=== PATIENT | female | born 1950 | race Caucasian/White ===

== ENCOUNTER 2020-05-04 16:36 | Inpatient (IN) | payer MEDICARE, OTHER ==
--- NOTE | 2020-05-04 17:31 | ER Document Report ---
ED Extremity Problem, Lower - General Chief Complaint: Knee Injury Stated Complaint: FALL,LEFT KNEE PAIN Time Seen by Provider: 05/04/20 16:55 Mode of Arrival: Ambulatory Information source: Patient Notes: 69-year-old female presented to ED for complaint of left knee pain. She states she was walking on the sidewalk when she tripped on the sidewalk landing on her knee. She states she did not machine pecan picker her feet is when she tripped. Was brought to the emergency room by EMS she has having pain in the left knee. She is alert oriented respirations regular nonlabored speaking in full sentences. - HPI Patient complains to provider of: Injury, Pain Location: Knee Occurred: Just prior to arrival Where: Outdoors Onset/Duration: Sudden Quality of pain: Sharp, Throbbing Severity: Severe Pain Level: 5 Context: Fell, Other Recent injury: No - Tripped Associated symptoms: Unable to bear weight, Other - Vomited today Exacerbated by: Movement Relieved by: Ice - Related Data Allergies/Adverse Reactions: morphine Allergy (Verified 05/04/20 16:58) nitrofurantoin [From Macrodantin] Allergy (Verified 05/04/20 16:58) Past Medical History - General Information source: Patient - Social History Smoking Status: Never Smoker Frequency of alcohol use: Rare Drug Abuse: None Lives with: Family Family History: Reviewed & Not Pertinent Patient has suicidal ideation: No Patient has homicidal ideation: No - Past Medical History Cardiac Medical History: Reports: Hx Hypertension Pulmonary Medical History: Reports: None EENT Medical History: Reports: None Neurological Medical History: Reports: None Endocrine Medical History: Reports: None, Hx Diabetes Mellitus Type 2 Renal/ Medical History: Reports: None Malignancy Medical History: Reports: None GI Medical History: Reports: Hx Gastroesophageal Reflux Disease, Hx Hiatal Hernia, Hx Ulcerative Colitis - In remission, Hx Colonoscopy, Hx Endoscopy Musculoskeletal Medical History: Reports Hx Musculoskeletal Deformity, Reports Hx Musculoskeletal Trauma Skin Medical History: Reports None Psychiatric Medical History: Reports: None Traumatic Medical History: Reports: Hx Fractures - Ankle Infectious Medical History: Reports: None Past Surgical History: Reports: Hx Cholecystectomy, Hx Oral Surgery - Multiple dental surgeries, Hx Orthopedic Surgery - Left ankle bilateral hip replacement Review of Systems - Review of Systems Constitutional: No symptoms reported EENT: No symptoms reported Cardiovascular: No symptoms reported Respiratory: No symptoms reported Gastrointestinal: No symptoms reported Genitourinary: No symptoms reported Female Genitourinary: No symptoms reported Musculoskeletal: Joint pain - Left knee pain and deformity, Joint swelling Skin: No symptoms reported Hematologic/Lymphatic: No symptoms reported Neurological/Psychological: No symptoms reported -: Yes All other systems reviewed and negative Physical Exam - Vital signs Vitals: Temp Pulse Resp BP Pulse Ox 98.5 F 70 18 125/63 97 05/04/20 16:57 05/04/20 16:57 05/04/20 16:57 05/04/20 16:57 05/04/20 16:57 Interpretation: Normal - General General appearance: Appears well, Alert - HEENT Head: Normocephalic, Atraumatic Eyes: Normal Pupils: PERRL - Respiratory Respiratory status: No respiratory distress Chest status: Nontender Breath sounds: Normal Chest palpation: Normal - Cardiovascular Rhythm: Regular Heart sounds: Normal auscultation Murmur: No - Abdominal Inspection: Normal Distension: No distension Bowel sounds: Normal Tenderness: Nontender Organomegaly: No organomegaly - Back Back: Normal, Nontender - Extremities General upper extremity: Normal inspection, Nontender, Normal color, Normal ROM, Normal temperature General lower extremity: Normal color, Normal temperature. No: Yuval's sign Knee: Tender, Deformity, Pain with ROM, Patellar tendon intact, Tender joint line, Unable to bear weight - Neurological Neuro grossly intact: Yes Cognition: Normal Orientation: AAOx4 [place] Coma Scale Eye Opening: Spontaneous [place] Coma Scale Verbal: Oriented Jazmine Coma Scale Motor: Obeys Commands [place] Coma Scale Total: 15 Speech: Normal Motor strength normal: LUE, RUE, LLE, RLE Sensory: Normal - Psychological Associated symptoms: Normal affect, Normal mood - Skin Skin Temperature: Warm Skin Moisture: Dry Skin Color: Normal Course - Re-evaluation Re-evalutation: 05/04/20 19:[address] Gonzales for her fractured distal femur. He stated a 69-year-old patient with comorbidities he needs to be admitted to hospitalist with consult for him. Will consult hospitalist for admission. Stated the leg would need to be immobilized if we cannot get a knee immobilizer on to immobilize it in its current position with a lot of bulky padding. 05/05/20 02:01 The hospitalist was consulted much earlier patient was admitted to hospitalist. Due to comorbidities. Patient was treated with a bulky long-leg splint. Preop labs and x-ray were completed. Patient was admitted to medical floor for orthopedic treatment. - Vital Signs Vital signs: Temp Pulse Resp BP Pulse Ox 98.5 F 70 10 L 113/59 L 94 05/04/20 16:57 05/04/20 16:57 05/04/20 23:01 05/04/20 23:00 05/04/20 23:00 - Laboratory Result Diagrams: 05/04/20 19:47 05/04/20 19:47 Laboratory results interpreted by me: 05/04/20 05/04/20 05/04/20 19:03 19:47 19:47 WBC 11.2 H Hgb 11.6 L Hct 34.3 L Lymph % (Auto) 10.7 L Absolute Neuts (auto) 9.1 H Seg Neutrophils % 81.1 H Sodium 132.1 L Glucose 197 H POC Glucose 158 H - Diagnostic Test Radiology reviewed: Image reviewed, Reports reviewed Procedures - Immobilization Left Knee Time completed: 20:26 Immobilizer type: Long leg posterior - Long-leg posterior in position of injury with bulky padding per Dr. Gonzales's orders Performed by: PCT Post-Proc Neuro Vasc Exam: Unchanged from pre-exam Notes: 05/05/20 02:04 Knee was not reduced at all it was splinted in position as it is a fracture that needs surgical reduction and stabilization Discharge - Discharge Clinical Impression: Closed fracture of left distal femur Qualifiers: Encounter type: initial encounter Fracture morphology: other fracture Qualified Code(s): S72.492A - Other fracture of lower end of left femur, initial encounter for closed fracture Disposition: ADMITTED INPATIENT Admitting Provider: Kevin (Hospitalist) Unit Admitted: Surgical Floor
--- NOTE | 2020-05-04 19:05 | RADIOLOGY REPORT (SQ) ---
EXAM DESCRIPTION: CHEST SINGLE VIEW IMAGES COMPLETED DATE/TIME: 05/04/2020 6:52 pm REASON FOR STUDY: PREOP COMPARISON: 05/04/2020 EXAM PARAMETERS: NUMBER OF VIEWS: One view. TECHNIQUE: Single frontal radiographic view of the chest acquired. RADIATION DOSE: NA LIMITATIONS: None. FINDINGS: LUNGS AND PLEURA: No opacities, masses or pneumothorax. No pleural effusion. MEDIASTINUM AND HILAR STRUCTURES: No masses. Contour normal. HEART AND VASCULAR STRUCTURES: Heart normal in size. Normal vasculature. BONES: No acute findings. HARDWARE: None in the chest. OTHER: No other significant finding. IMPRESSION: NO ACUTE RADIOGRAPHIC FINDING IN THE CHEST. TECHNICAL DOCUMENTATION: JOB ID: [id number] 2010 [employer]- All Rights Reserved Reading location - IP/workstation name: [email or web address]
--- NOTE | 2020-05-04 19:05 | RADIOLOGY REPORT (SQ) ---
EXAM DESCRIPTION: FEMUR LEFT IMAGES COMPLETED DATE/TIME: 05/04/2020 6:52 pm REASON FOR STUDY: fall pain COMPARISON: None. NUMBER OF VIEWS: Two views. TECHNIQUE: Two radiographic images acquired of the left femur to include hip and knee in at least on e projection. LIMITATIONS: None. FINDINGS: MINERALIZATION: Normal. BONES: Comminuted displaced fracture of the distal femur. There appears to be a vertical component t hat separates the condyles. The distal femoral diaphysis is anterior in relation to the knee. SOFT TISSUES: No obvious swelling or foreign body. OTHER: No other significant finding. IMPRESSION: Comminuted fracture of the distal femur as described. TECHNICAL DOCUMENTATION: JOB ID: [id number] 2010 [email or web address]- All Rights Reserved Reading location - IP/workstation name: [email or web address]
[2020-05-04] MEDS ORDERED: HYDROMORPHONE HCL INJ/PF 2 MG/ML AMPULE IV ONE (19:06)
[2020-05-04 20:05] LABS: ABSOLUTE EOSINOPHILS # (AUTO) 0.1 10^3/uL (0.0-0.6); ABSOLUTE LYMPHOCYTES (AUTO) 1.2 10^3/uL (0.5-4.7); ABSOLUTE MONOCYTES (AUTO) 0.7 10^3/uL (0.1-1.4); ABSOLUTE NEUT (AUTO) 9.1 10^3/uL (1.7-8.2); BASOPHILS % (AUTO) 0.3 % (0-2); EOSINOPHILS % (AUTO) 1.3 % (0-6); HEMATOCRIT 34.3 % (36.0-47.0); HEMOGLOBIN 11.6 g/dL (12.0-15.5); LYMPHOCYTES % (AUTO) 10.7 % (13-45); MEAN CORPUSCULAR HEMOGLOBIN 29.1 pg (27.0-33.4); MEAN CORPUSCULAR HGB CONC 33.8 g/dL (32.0-36.0); MEAN CORPUSCULAR VOLUME 86 fl (80-97); MONOCYTES % (AUTO) 6.6 % (3-13); PLATELET COUNT 215 10^3/uL (150-450); RED BLOOD COUNT 3.99 10^6/uL (3.72-5.28); RED CELL DISTRIBUTION WIDTH 13.3 % (11.5-14.0); SEGMENTED NEUTROPHILS % (AUTO) 81.1 % (42-78); TOTAL CELLS COUNTED % (AUTO) 100 %; WHITE BLOOD COUNT 11.2 10^3/uL (4.0-10.5)
[2020-05-04 20:22] LABS: ALBUMIN 3.7 g/dL (3.5-5.0); ALKALINE PHOSPHATASE 52 U/L (38-126); ANION GAP 5 (5-19); ASPARTATE AMINO TRANSFERASE 29 U/L (14-36); BILIRUBIN,TOTAL 0.6 mg/dL (0.2-1.3); BLOOD UREA NITROGEN 14 mg/dL (7-20); CALCIUM 8.9 mg/dL (8.4-10.2); CARBON DIOXIDE 29 mmol/L (22-30); CHLORIDE 98 mmol/L (98-107); GLUCOSE 197 mg/dL (75-110); POTASSIUM 3.8 mmol/L (3.6-5.0); TOTAL PROTEIN 6.4 g/dL (6.3-8.2)
[2020-05-04] MEDS ORDERED: GLUCAGON,HUMAN RECOMB 1 MG INJ IM PRN (21:20)
[2020-05-04] MEDS ORDERED: DEXTROSE 40% GEL 15 GM TUBE PO PRN ×2 (21:20)
[2020-05-04] MEDS ORDERED: DEXTROSE 50%-WATER 25 GM/50 ML DISP.SYRIN IV PRN ×2 (21:20)
[2020-05-04] MEDS ORDERED: PROMETHAZINE HCL INJ 25 MG/1 ML VIAL IV PRN (21:20)
[2020-05-04] MEDS ORDERED: LORAZEPAM INJ 2 MG/1 ML VIAL IV PRN (21:27)
[2020-05-04] MEDS ORDERED: HYDROMORPHONE HCL INJ/PF 2 MG/ML AMPULE IV PRN (21:27)
[2020-05-04] MEDS ORDERED: ACETAMINOPHEN 650 MG SUPP.RECT PR PRN (21:27)
[2020-05-04] MEDS ORDERED: METOPROLOL TARTRATE PF/INJ 5 MG/5 ML SDV IV PRN (21:27)
[2020-05-04] MEDS ORDERED: HYDRALAZINE HCL INJ/PF 20 MG/1 ML SDV IV PRN (21:27)
[2020-05-04] MEDS: RINGERS SOLUTION,LACTATED 1,000 ML IV PRN (22:35)
[2020-05-04] MEDS: HYDROMORPHONE HCL INJ/PF 2 MG/ML AMPULE IV PRN (22:35)
[2020-05-05] MEDS: HEPARIN SOD (PORCINE) 5,000 UNIT/ML 1 ML VIAL SUBCUT SCH ×4 (00:18→22:53)
[2020-05-05] MEDS: INSULIN REG, HUMAN 100 UNIT/ML 3 ML VIAL (PYX) SUBCUT SCH ×5 (00:18→22:52)
[2020-05-05] MEDS: FAMOTIDINE INJ/PF 20 MG/2 ML SDV IV SCH ×3 (00:18→22:53)
--- NOTE | 2020-05-05 01:22 | PDOC H&P ---
History of Present Illness Admission Date/PCP: 05/04/2020 20:55 No local PCP Patient complains of: Left knee pain History of Present Illness: AB SESAY is a 69 year old female who presented to the emergency room with acute left knee pain. She admits accidentally tripping and falling while walking just prior to arrival, resulting in her landing with her left knee on the sidewalk and experiencing immediate severe pain in her knee. The pain is a constant, nonradiating, severe sharp throbbing in her left knee. Pain is worsened by movement of her left knee or any attempted weightbearing. She denies any associated or accompanying signs and symptoms. She denies prior similar episodes. She has not identified any additional aggravating or ameliorating factors for her pain. In the emergency room she was found to have a comminuted fracture of her left distal femur. She was subsequently admitted to the hospitalist service at the direction of Dr. Alex Gonzales who will see her in consultation for orthopedic care. Past Medical History Cardiac Medical History: Reports: Hypertension Denies: Coronary Artery Disease, Myocardial Infarction Pulmonary Medical History: Denies: Asthma, Chronic Obstructive Pulmonary Disease (COPD) EENT Medical History: Denies: Cataracts, Ears - Hearing aids Neurological Medical History: Denies: Hemorrhagic CVA, Ischemic CVA, Seizures Endocrine Medical History: Reports: Diabetes Mellitus Type 2, Obesity Denies: Diabetes Mellitus Type 1, Hyperthyroidism, Hypothyroidism Renal/ Medical History: Reports: Other - Urinary retention: Treated surgically Denies: Chronic Kidney Disease, Nephrolithiasis Malignancy Medical History: Reports: None GI Medical History: Reports: Gastroesophageal Reflux Disease, Hiatal Hernia, Ulcerative Colitis - In remission Musculoskeltal Medical History: Denies: Arthritis, Fibromyalgia Skin Medical History: Denies: Eczema, Psoriasis Psychiatric Medical History: Denies: Alcohol Dependency, Substance Abuse, Tobacco Dependency Traumatic Medical History: Reports: None Hematology: Denies: Anemia, Bleeding Tendencies Infectious Medical History: Reports: None Past Surgical History Past Surgical History: Reports: Section - X3, Cholecystectomy, Hip Replacement, Orthopedic Surgery - Left ankle, bilateral hip replacement, Other - Farzad-Raegan Juanita procedure Social History Information Source: Patient Lives with: Spouse/Significant other Smoking Status: Never Smoker Electronic Cigarette use?: No Frequency of Alcohol Use: Rare Hx Recreational Drug Use: No Drugs: None Hx Prescription Drug Abuse: No - Advance Directive Resuscitation Status: Full Code Surrogate healthcare decision maker:: Alex Sesay Family History Family History: DM, Hypertension. denies: CAD, CVA, Malignancy Parental Family History Reviewed: Yes Children Family History Reviewed: No Sibling(s) Family History Reviewed.: Yes Medication/Allergy Allergies/Adverse Reactions: morphine Allergy (Verified 05/04/20 16:58) nitrofurantoin [From Macrodantin] Allergy (Verified 05/04/20 16:58) Review of Systems Constitutional: ABSENT: chills, fever(s) Eyes: ABSENT: visual disturbances, other - Eye pain Ears: ABSENT: hearing changes, other - Ear pain Nose, Mouth, and Throat: ABSENT: headache(s), sore throat Cardiovascular: ABSENT: chest pain, palpitations Respiratory: ABSENT: cough, dyspnea Gastrointestinal: ABSENT: abdominal pain, constipation, diarrhea, nausea, vomiting Genitourinary: ABSENT: dysuria, hematuria Musculoskeletal: ABSENT: joint swelling, muscle weakness Integumentary: ABSENT: pruritus, rash Neurological: ABSENT: confusion, convulsions, focal weakness, memory loss, syncope Psychiatric: ABSENT: anxiety, depression Endocrine: ABSENT: cold intolerance, heat intolerance Hematologic/Lymphatic: ABSENT: easy bleeding, easy bruising Allergic/Immunologic: ABSENT: seasonal rhinorrhea Physical Exam Vital Signs: Temp Pulse Resp BP Pulse Ox 98.5 F 70 18 143/65 H 100 05/04/20 16:57 05/04/20 16:57 05/04/20 16:57 05/04/20 19:15 05/04/20 19:15 Intake & Output 05/02/20 05/03/20 05/04/20 23:59 23:59 23:59 Weight 103 kg General appearance: PRESENT: cooperative, mild distress - Secondary to left knee pain, obese Head exam: PRESENT: atraumatic, normocephalic Eye exam: PRESENT: conjunctiva pink. ABSENT: conjunctival injection, scleral icterus Ear exam: PRESENT: normal external ear exam. ABSENT: bleeding, drainage Mouth exam: PRESENT: dry mucosa, neck supple Neck exam: ABSENT: thyromegaly, tracheal deviation Respiratory exam: PRESENT: clear to auscultation isiah, symmetrical, unlabored Cardiovascular exam: PRESENT: RRR. ABSENT: clicks, gallop, rubs Pulses: PRESENT: normal radial pulses, normal dorsalis pedis pul Vascular exam: PRESENT: normal capillary refill. ABSENT: pallor GI/Abdominal exam: PRESENT: normal bowel sounds, soft. ABSENT: tenderness Rectal exam: PRESENT: deferred Extremities exam: PRESENT: joint swelling - Left knee, tenderness - Left knee and distal femur. ABSENT: pedal edema Musculoskeletal exam: PRESENT: other - Left knee in immobilizer/splint. ABSENT: ambulatory, deformity, dislocation Neurological exam: PRESENT: alert, oriented to person, oriented to place, oriented to time, oriented to situation, CN II-XII grossly intact. ABSENT: motor sensory deficit Psychiatric exam: PRESENT: appropriate affect, normal mood Skin exam: PRESENT: dry, intact, warm. ABSENT: jaundice, rash, urticaria Results Laboratory Results: 05/04/20 19:47 05/04/20 19:47 05/04/20 05/04/20 19:47 19:47 WBC 11.2 H RBC 3.99 Hgb 11.6 L Hct 34.3 L MCV 86 MCH 29.1 MCHC 33.8 RDW 13.3 Plt Count 215 Seg Neutrophils % 81.1 H Sodium 132.1 L Potassium 3.8 Chloride 98 Carbon Dioxide 29 Anion Gap 5 BUN 14 Creatinine 0.63 Est GFR ( Amer) > 60 Glucose 197 H Calcium 8.9 Total Bilirubin 0.6 AST 29 Alkaline Phosphatase 52 Total Protein 6.4 Albumin 3.7 Impressions: Chest X-Ray 05/04/20 00:00 IMPRESSION: NO ACUTE RADIOGRAPHIC FINDING IN THE CHEST. Femur X-Ray 05/04/20 16:55 IMPRESSION: Comminuted fracture of the distal femur as described. Assessment and Plan - Diagnosis (1) Closed comminuted intra-articular fracture of distal end of left femur Qualifiers: Encounter type: initial encounter Qualified Code(s): S72.492A - Other fracture of lower end of left femur, initial encounter for closed fracture Is this a current diagnosis for this admission?: Yes (2) Diabetes mellitus type 2 in obese Is this a current diagnosis for this admission?: Yes (3) Hypertension Qualifiers: Hypertension type: essential hypertension Qualified Code(s): I10 - Essential (primary) hypertension Is this a current diagnosis for this admission?: Yes (4) History of ulcerative colitis Is this a current diagnosis for this admission?: Yes (5) Obesity (BMI 30-39.9) Is this a current diagnosis for this admission?: Yes - Plan Summary Summary: Patient will be admitted to the medical service where she will receive routine supportive and symptomatic cares. She will receive Dilaudid 0.52 mg IV every 3 hours as needed for pain. She will receive Ativan 1 mg IV every 4 hours as needed for anxiety or restlessness. Dr. Gonzales will be consulted for orthopedic care as per his request. Patient will be n.p.o. after midnight. She will receive IV fluids utilizing lactated Ringer solution at 167 mL/h. Before m eals and at bedtime Accu-Cheks will be performed with sliding scale insulin for hyperglycemia and a hypoglycemic protocol in place. CBCs, metabolic profiles and other laboratory and/or radiographic evaluations will be obtained as needed. - Time Time Spent with patient: 15-24 minutes Medications reviewed and adjusted accordingly: Yes Anticipated Discharge Disposition: Custodial Facility Anticipated Discharge: when bed available - Inpatient Certification Based on my medical assessment, after consideration of the patient's comorbidities, presenting symptoms, or acuity I expect that the services needed warrant INPATIENT care.: Yes I certify that my determination is in accordance with my understanding of Medicare's requirements for reasonable and necessary INPATIENT services [42 CFR 412.3e].: Yes Medical Necessity: Need For IV Fluids, Need for Pain Control, Need for Surgery
[2020-05-05] MEDS: RINGERS SOLUTION,LACTATED 1,000 ML IV PRN ×3 (04:53→17:45)
[2020-05-05] MEDS: HYDROMORPHONE HCL INJ/PF 2 MG/ML AMPULE IV PRN ×4 (06:53→22:53)
[2020-05-05 07:20] LABS: HEMATOCRIT 30.1 % (36.0-47.0); HEMOGLOBIN 10.2 g/dL (12.0-15.5); MEAN CORPUSCULAR HEMOGLOBIN 29.3 pg (27.0-33.4); MEAN CORPUSCULAR VOLUME 86 fl (80-97); PLATELET COUNT 186 10^3/uL (150-450); RED BLOOD COUNT 3.49 10^6/uL (3.72-5.28); RED CELL DISTRIBUTION WIDTH 12.9 % (11.5-14.0); WHITE BLOOD COUNT 6.4 10^3/uL (4.0-10.5)
--- NOTE | 2020-05-05 07:31 | PDOC CONSULTATION ---
Consultation Consult Date: 05/05/20 Provider Consulted: RBOIN LUCERO History of Present Illness Admission Date/PCP: 05/04/20 20:55 History of Present Illness: AB SESAY is a 69 year old female Patient is a 69-year-old white female vacationing in the area from [place] who slipped and fell and sustained a left lower extremity injury. She was brought to the emergency room where a comminuted intra-articular left distal femoral fracture was identified radiographically. It was splinted. She is admitted to the orthopedic service for fracture management. Past Medical History Cardiac Medical History: Reports: Hypertension Denies: Coronary Artery Disease, Myocardial Infarction Pulmonary Medical History: Reports: None Denies: Asthma, Chronic Obstructive Pulmonary Disease (COPD) EENT Medical History: Reports: None Denies: Cataracts, Ears - Hearing aids Neurological Medical History: Reports: None Denies: Hemorrhagic CVA, Ischemic CVA, Seizures Endocrine Medical History: Reports: None, Diabetes Mellitus Type 2, Obesity Denies: Diabetes Mellitus Type 1, Hyperthyroidism, Hypothyroidism Renal/ Medical History: Reports: None, Other - Urinary retention: Treated surgically Denies: Chronic Kidney Disease, Nephrolithiasis Malignancy Medical History: Reports: None GI Medical History: Reports: Gastroesophageal Reflux Disease, Hiatal Hernia, Ulcerative Colitis - In remission Musculoskeltal Medical History: Denies: Arthritis, Fibromyalgia Skin Medical History: Reports: None Denies: Eczema, Psoriasis Psychiatric Medical History: Reports: None, Depression Denies: Alcohol Dependency, Substance Abuse, Tobacco Dependency Traumatic Medical History: Reports: None Hematology: Denies: Anemia, Bleeding Tendencies Infectious Medical History: Reports: None Past Surgical History Past Surgical History: Reports: Section - X3, Cholecystectomy, Hip Replacement, Orthopedic Surgery - Left ankle bilateral hip replacement, Other - Farzad-Raegan Juanita procedure Social History Lives with: Family Smoking Status: Never Smoker Electronic Cigarette use?: No Frequency of Alcohol Use: Rare Hx Recreational Drug Use: No Drugs: None Hx Prescription Drug Abuse: No - Advance Directive Resuscitation Status: Full Code Family History Family History: Reviewed & Not Pertinent Parental Family History Reviewed: No Children Family History Reviewed: No Sibling(s) Family History Reviewed.: No Medication/Allergy Allergies/Adverse Reactions: morphine Allergy (Verified 05/04/20 16:58) nitrofurantoin [From Macrodantin] Allergy (Verified 05/04/20 16:58) Review of Systems All systems: as per H Physical Exam Vital Signs: Temp Pulse Resp BP Pulse Ox 36.8 C 79 18 116/50 L 96 05/05/20 04:54 05/05/20 04:54 05/05/20 04:54 05/05/20 04:54 05/05/20 04:54 Intake & Output 05/04/20 05/05/20 05/06/20 06:59 06:59 06:59 Intake Total 1000 Output Total 300 Balance 700 Weight 103.8 kg Physical Exam: Obese middle-aged white female lying in hospital bed in minimal distress. Her sits an extra in a recliner. Patient is alert, oriented, and appropriate. General appearance: PRESENT: no acute distress, mild distress Head exam: PRESENT: normocephalic Respiratory exam: PRESENT: unlabored Cardiovascular exam: PRESENT: RRR Pulses: PRESENT: +1 pedal pulses bilateral Vascular exam: PRESENT: normal capillary refill GI/Abdominal exam: PRESENT: soft Rectal exam: PRESENT: deferred Extremities exam: PRESENT: other - Left lower extremity immobilized in a posterior splint. Neurovascular examination of the toes is intact. Neurological exam: PRESENT: alert, awake, oriented to person, oriented to place, oriented to time, oriented to situation. ABSENT: motor sensory deficit Results Laboratory Results: 05/04/20 05/04/20 19:47 19:47 WBC 11.2 H RBC 3.99 Hgb 11.6 L Hct 34.3 L MCV 86 MCH 29.1 MCHC 33.8 RDW 13.3 Plt Count 215 Seg Neutrophils % 81.1 H Sodium 132.1 L Potassium 3.8 Chloride 98 Carbon Dioxide 29 Anion Gap 5 BUN 14 Creatinine 0.63 Est GFR ( Amer) > 60 Glucose 197 H Calcium 8.9 Total Bilirubin 0.6 AST 29 Alkaline Phosphatase 52 Total Protein 6.4 Albumin 3.7 Impressions: Chest X-Ray 05/04/20 00:00 IMPRESSION: NO ACUTE RADIOGRAPHIC FINDING IN THE CHEST. Femur X-Ray 05/04/20 16:55 IMPRESSION: Comminuted fracture of the distal femur as described. Status: Imported from PACS Assessment & Plan - Diagnosis (1) Closed comminuted intra-articular fracture of distal end of left femur Qualifiers: Encounter type: initial encounter Qualified Code(s): S72.492A - Other fracture of lower end of left femur, initial encounter for closed fracture Is this a current diagnosis for this admission?: Yes Plan: The patient is from [place] and I discussed the situation with both she and her . The options are either for transfer back to [place] and having her definitive surgery in [place] which would have the advantage of continuity of care with a local orthopedic surgeon. The alternative would be for an open reduction internal fixation here and then transferred to [place] under the care of a local orthopedic surgeon for postoperative follow-up. The patient and her are of the opinion that they rather have the fracture fixed here and acknowledge that it may be 2 weeks before they can transfer back to [place]. Plan will be for an open reduction for fixation on Monday under choice anesthesia. Primary plan will be for a retrograde intramedullary nail with a backup plan of plate and screw reconstruction depending on the integrity of the distal femoral fragment. - Time Time Spent: 50 to 70 Minutes Anticipated discharge: Other Anticipated DC Timeframe: Other
[2020-05-05 07:46] LABS: BLOOD UREA NITROGEN 13 mg/dL (7-20); CALCIUM 8.3 mg/dL (8.4-10.2); CARBON DIOXIDE 31 mmol/L (22-30); CHLORIDE 99 mmol/L (98-107); GLUCOSE 152 mg/dL (75-110); POTASSIUM 3.7 mmol/L (3.6-5.0)
[2020-05-05 07:56] LABS: ANION GAP 3 (5-19)
--- NOTE | 2020-05-05 10:10 | EKG REPORT ---
SEVERITY:- ABNORMAL ECG - LOW VOLTAGE IN FRONTAL LEADS NONSPECIFIC T ABNORMALITIES, ANT-LAT LEADS SINUS RHYTHM : Confirmed by: Kristal Henriquez MD 05-May-2020 10:09:31
[2020-05-05] MEDS ORDERED: MELOXICAM 15 MG TABLET PO PRN (18:06)
--- NOTE | 2020-05-05 18:10 | PDOC PROGRESS REPORT ---
Subjective Progress Note for:: 05/05/20 Subjective:: Patient went for left femur fracture, orthopedic surgery consulted. Admitted to medicine service for diabetes and hypertension management. Patient has well-controlled left leg pain, using narcotics sparingly. A1c is 7.7 and her COVID was negative. EKG showed NSR. Home medications will be restarted. Patient has no other complaints. Surgery planned possibly for tomorrow. Reason For Visit: COMMINUTED FRACTURE LEFT DISTAL FEMUR Physical Exam Vital Signs: Temp Pulse Resp BP Pulse Ox 99.1 F 84 16 134/57 H 94 05/05/20 15:02 05/05/20 15:02 05/05/20 15:02 05/05/20 15:02 05/05/20 15:02 Intake & Output 05/04/20 05/05/20 05/06/20 06:59 06:59 06:59 Intake Total 1000 2000 Output Total 300 Balance 700 2000 Weight 103.8 kg General appearance: PRESENT: no acute distress, well-developed, well-nourished Head exam: PRESENT: atraumatic, normocephalic Eye exam: PRESENT: conjunctiva pink Respiratory exam: PRESENT: clear to auscultation isiah. ABSENT: rales, rhonchi, wheezes Cardiovascular exam: PRESENT: RRR. ABSENT: diastolic murmur, rubs, systolic murmur GI/Abdominal exam: PRESENT: normal bowel sounds, soft. ABSENT: distended, guarding, mass, organolmegaly, rebound, tenderness Musculoskeletal exam: PRESENT: tenderness - Left leg pain along femur fracture Neurological exam: PRESENT: alert, awake, oriented to person, oriented to place, oriented to time, oriented to situation Psychiatric exam: PRESENT: appropriate affect, normal mood Skin exam: PRESENT: dry, intact, warm Results Laboratory Results: 05/05/20 06:53 05/05/20 06:53 05/04/20 05/04/20 05/05/20 19:47 19:47 06:53 WBC 11.2 H 6.4 RBC 3.99 3.49 L Hgb 11.6 L 10.2 L Hct 34.3 L 30.1 L MCV 86 86 MCH 29.1 29.3 MCHC 33.8 34.0 RDW 13.3 12.9 Plt Count 215 186 Seg Neutrophils % 81.1 H Sodium 132.1 L Potassium 3.8 Chloride 98 Carbon Dioxide 29 Anion Gap 5 BUN 14 Creatinine 0.63 Est GFR ( Amer) > 60 Glucose 197 H Calcium 8.9 Magnesium Total Bilirubin 0.6 AST 29 Alkaline Phosphatase 52 Total Protein 6.4 Albumin 3.7 05/05/20 06:53 WBC RBC Hgb Hct MCV MCH MCHC RDW Plt Count Seg Neutrophils % Sodium 133.3 L Potassium 3.7 Chloride 99 Carbon Dioxide 31 H Anion Gap 3 L BUN 13 Creatinine 0.51 L Est GFR ( Amer) > 60 Glucose 152 H Calcium 8.3 L Magnesium 1.8 Total Bilirubin AST Alkaline Phosphatase Total Protein Albumin Impressions: Chest X-Ray 05/04/20 00:00 IMPRESSION: NO ACUTE RADIOGRAPHIC FINDING IN THE CHEST. Femur X-Ray 05/04/20 16:55 IMPRESSION: Comminuted fracture of the distal femur as described. Assessment and Plan - Diagnosis (1) Closed comminuted intra-articular fracture of distal end of left femur Qualifiers: Encounter type: initial encounter Qualified Code(s): S72.492A - Other fracture of lower end of left femur, initial encounter for closed fracture Is this a current diagnosis for this admission?: Yes Plan: Orthopedic surgery consulted: Planning surgery 05/06 Pain management available Likely will need DVT prophylaxis for a few weeks after surgery (2) Closed fracture of left distal femur Qualifiers: Encounter type: initial encounter Fracture morphology: other fracture Qualified Code(s): S72.492A - Other fracture of lower end of left femur, initial encounter for closed fracture Is this a current diagnosis for this admission?: Yes Plan: As above (3) Diabetes mellitus type 2 in obese Is this a current diagnosis for this admission?: Yes Plan: Hold oral medications, he sliding scale insulin and Accu-Cheks Hemoglobin A1c 7.7 (4) History of ulcerative colitis Is this a current diagnosis for this admission?: Yes Plan: No acute problems (5) Hypertension Qualifiers: Hypertension type: essential hypertension Qualified Code(s): I10 - Essential (primary) hypertension Is this a current diagnosis for this admission?: Yes Plan: Home meds held pending surgery, BP controlled (6) Obesity (BMI 30-39.9) Is this a current diagnosis for this admission?: Yes - Plan Summary Summary: Patient will be admitted to the medical service where she will receive routine supportive and symptomatic cares. She will receive Dilaudid 0.52 mg IV every 3 hours as needed for pain. She will receive Ativan 1 mg IV every 4 hours as needed for anxiety or restlessness. Dr. Gonzales will be consulted for orthopedic care as per his request. Patient will be n.p.o. after midnight. She will receive IV fluids utilizing lactated Ringer solution at 167 mL/h. Before meals and at bedtime Accu-Cheks will be performed with sliding scale insulin for hyperglycemia and a hypoglycemic protocol in place. CBCs, metabolic profiles and other laboratory and/or radiographic evaluations will be obtained as needed. - Time Time Spent with patient: 25-34 minutes Medications reviewed and adjusted accordingly: Yes Anticipated Discharge Disposition: Group Home Facility Anticipated Discharge: within 72 hours - Inpatient Certification Based on my medical assessment, after consideration of the patient's comorbidities, presenting symptoms, or acuity I expect that the services needed warrant INPATIENT care.: Yes I certify that my determination is in accordance with my understanding of Medicare's requirements for reasonable and necessary INPATIENT services [42 CFR 412.3e].: Yes Medical Necessity: Significant Comorbidiites Make Outpatient Treatment Too Risky, Need Close Monitoring Due to Risk of Patient Decompensation, Need for Pain Control, Risk of Complication if Not Cared For in Hospital, Risk of Diagnosis Which Will Require Inpatient Eval/Care/Monitoring
[2020-05-05] MEDS ORDERED: TIMOLOL MALEATE 0.5% OPH SOLN 5 ML OU SCH (22:00)
[2020-05-05] MEDS: LATANOPROST 0.005% OPH SOLN 2.5 ML OU SCH (22:52)
[2020-05-05] MEDS: ATORVASTATIN CALCIUM 20 MG TABLET PO SCH (22:53)
[2020-05-05] MEDS: ACETAMINOPHEN 325 MG TABLET PO PRN (23:38)
[2020-05-06] MEDS: RINGERS SOLUTION,LACTATED 1,000 ML IV PRN (00:10)
[2020-05-06] MEDS ORDERED: CEFAZOLIN 2 GM/D5W RTU 2 GM/50 ML RTUPB IV PRN (05:00)
[2020-05-06] MEDS ORDERED: TRANEXAMIC ACID INJ/PF 1,000 MG/10 ML SDV IV PRN (05:00)
[2020-05-06] MEDS: HEPARIN SOD (PORCINE) 5,000 UNIT/ML 1 ML VIAL SUBCUT SCH (05:03)
[2020-05-06] MEDS: HYDROMORPHONE HCL INJ/PF 2 MG/ML AMPULE IV PRN ×4 (05:03→19:38)
[2020-05-06] MEDS ORDERED: CEFAZOLIN INJ 1 GM VIAL ONE (07:11)
[2020-05-06] MEDS ORDERED: THROMBIN (BOVINE) 5000 UNIT EPITAXIS KIT ONE (07:13)
[2020-05-06] MEDS ORDERED: MIDAZOLAM 2 MG/2 ML INJ ONE (07:16)
[2020-05-06] MEDS ORDERED: EPHEDRINE SULFATE INJ 50 MG/1 ML AMPULE ONE (07:16)
[2020-05-06] MEDS ORDERED: FENTANYL CITRATE INJ/PF 250 MCG/5 ML AMPULE ONE (07:16)
[2020-05-06] MEDS ORDERED: PROPOFOL INJ 200 MG/20 ML VIAL IV ONE (07:17)
[2020-05-06] MEDS ORDERED: PROMETHAZINE HCL INJ 25 MG/1 ML VIAL IV PRN ×2 (08:27)
[2020-05-06] MEDS ORDERED: OXYCODONE-ACETAMINOPHEN 5-325 MG TABLET PO PRN ×2 (08:27)
[2020-05-06] MEDS ORDERED: DIPHENHYDRAMINE HCL 50 MG/ML VIAL IV PRN (08:27)
[2020-05-06] MEDS ORDERED: MEPERIDINE HCL/PF INJ 25 MG/1 ML DISP.SYRIN IV PRN (08:27)
[2020-05-06] MEDS ORDERED: FENTANYL CITRATE INJ/PF 100 MCG/2 ML AMPUL IV PRN ×3 (08:27)
[2020-05-06] MEDS: INSULIN REG, HUMAN 100 UNIT/ML 3 ML VIAL (PYX) SUBCUT SCH ×4 (09:15→21:43)
[2020-05-06] MEDS ORDERED: BUPIVACAINE INJ/PF LIPOSOME/PF 266 MG/20 ML SDV ONE (09:23)
--- NOTE | 2020-05-06 09:38 | Operative Report ---
Operative Report DATE OF SURGERY: 05/06/20 PREOPERATIVE DIAGNOSIS: T condylar split the left supracondylar femur fracture OPERATION: Open reduction internal fixation left distal femur fracture SURGEON: ROBIN LUCERO ANESTHESIA: Spinal ESTIMATED BLOOD LOSS: 100 PROCEDURE: With the patient supine on the operating table the left lower extremities prepped and draped sterile fashion. Limb is elevated for exsanguination tourniquet inflated 280 torr. A standard midline median parapatellar approach the knee is taken. Upon entering the knee a large amount hematoma is evacuated. The T condylar split is easily identified. Under direct visualization it is reduced anatomically and held with 2 threaded Steinmann pins. Next the femur is prepared for a retrograde [place] femoral nail by placing a pin, using this as a cannulated basis for a cortical reamer and then flexible reamers until a 13 mm reamer is seated. The depth of the canal measures 200 mm and is limited proximally by an AML stem. Subsequently a 12 x 200 mm retrograde [place] femoral nail was advanced to an appropriate depth both in terms of it being close to and limited by the AML stem as well as the fact that the articular portion is countersunk to a small extent. The distal end is now fixed with 2 bolts and 2 screws. The proximal end is fixed with 2 screws. The fracture reduction and the hardware placement are checked fluoroscopically and felt to be adequate. The Steinmann pins were removed. The tourniquet is deflated. Hemostasis obtained with electrocautery. The wound is irrigated with 3 L normal saline con taining Betadine and pulse lavage. A subsequent closed in layers interrupted Vicryl followed by kaylie. A sterile compressive dressing is applied and patient is returned to the PACU in satisfactory condition.
--- NOTE | 2020-05-06 10:14 | RADIOLOGY REPORT (SQ) ---
EXAM DESCRIPTION: NO CHG FLUORO; FEMUR LEFT IMAGES COMPLETED DATE/TIME: 05/06/2020 9:52 am REASON FOR STUDY: ORIF DISTAL FEMUR COMPARISON: None. FLUOROSCOPY TIME: 1.1 minutes 7 Images saved to PACS TECHNIQUE: Intra-operative images acquired during surgical procedure to evaluate progress. NUMBER OF IMAGES: 7 LIMITATIONS: None. FINDINGS: Intraprocedural fluoroscopic images demonstrate evidence of intramedullary femur erika fixat ion. Please see operative report for detailed description. IMPRESSION: IMAGE(S) OBTAINED DURING PROCEDURE. COMMENT: Quality ID 145: Final reports for procedures using fluoroscopy that document radiation exp osure indices, or exposure time and number of fluorographic images (if radiation exposure indices are not available) Please consult full operative report of the attending physician for description of the procedure. TECHNICAL DOCUMENTATION: JOB ID: [id number] 2010 [employer]- All Rights Reserved Reading location - IP/workstation name: [email or web address]
--- NOTE | 2020-05-06 10:14 | RADIOLOGY REPORT (SQ) ---
EXAM DESCRIPTION: NO CHG FLUORO; FEMUR LEFT IMAGES COMPLETED DATE/TIME: 05/06/2020 9:52 am REASON FOR STUDY: ORIF DISTAL FEMUR COMPARISON: None. FLUOROSCOPY TIME: 1.1 minutes 7 Images saved to PACS TECHNIQUE: Intra-operative images acquired during surgical procedure to evaluate progress. NUMBER OF IMAGES: 7 LIMITATIONS: None. FINDINGS: Intraprocedural fluoroscopic images demonstrate evidence of intramedullary femur erika fixat ion. Please see operative report for detailed description. IMPRESSION: IMAGE(S) OBTAINED DURING PROCEDURE. COMMENT: Quality ID 145: Final reports for procedures using fluoroscopy that document radiation exp osure indices, or exposure time and number of fluorographic images (if radiation exposure indices are not available) Please consult full operative report of the attending physician for description of the procedure. TECHNICAL DOCUMENTATION: JOB ID: [id number] 2010 [employer]- All Rights Reserved Reading location - IP/workstation name: [email or web address]
[2020-05-06] MEDS ORDERED: TRANEXAMIC ACID INJ/PF 1,000 MG/10 ML SDV ONE (10:26)
[2020-05-06] MEDS ORDERED: MEPERIDINE HCL/PF INJ 25 MG/1 ML DISP.SYRIN ONE (11:03)
[2020-05-06] MEDS ORDERED: CEFAZOLIN 2 GM/D5W RTU 2 GM/50 ML RTUPB IV SCH (14:00)
[2020-05-06] MEDS ORDERED: ONDANSETRON HCL INJ/PF 4 MG/2 ML SDV ONE (14:33)
[2020-05-06] MEDS: CHOLECALCIFEROL (D3) 1,000 UNIT (25 MCG) TABLET PO SCH (14:46)
[2020-05-06] MEDS: FLUOXETINE HCL 20 MG CAPSULE PO SCH (14:46)
[2020-05-06] MEDS: ACETAMINOPHEN 325 MG TABLET PO PRN ×2 (15:13→21:43)
[2020-05-06] MEDS: FAMOTIDINE INJ/PF 20 MG/2 ML SDV IV SCH ×2 (15:32→21:43)
[2020-05-06] MEDS: CEFAZOLIN 2 GM/D5W RTU 2 GM/50 ML RTUPB IV SCH ×2 (18:05→23:04)
--- NOTE | 2020-05-06 18:41 | PDOC PROGRESS REPORT ---
Subjective Progress Note for:: 05/06/20 Subjective:: Patient went for left femur fracture, orthopedic surgery consulted. Admitted to medicine service for diabetes and hypertension management. Patient has well-controlled left leg pain, using narcotics sparingly. A1c is 7.7 and her COVID was negative. EKG showed NSR. Home medications will be restarted. Patient has no other complaints. Surgery planned possibly for tomorrow. 05/06/2020 Patient seen postop seems to be doing quite well other than having expected s evere pain from her surgery. Nursing at bedside and planning to treat her pain appropriately. Patient states her surgery went well and she has no other new complaints. Labs and vitals reviewed. Reason For Visit: COMMINUTED FRACTURE LEFT DISTAL FEMUR Physical Exam Vital Signs: Temp Pulse Resp BP Pulse Ox 98.9 F 98 12 128/47 H 90 L 05/06/20 12:00 05/06/20 12:00 05/06/20 12:00 05/06/20 12:00 05/06/20 12:00 Intake & Output 05/05/20 05/06/20 05/07/20 06:59 06:59 06:59 Intake Total 1000 4000 3950 Output Total 300 2000 1200 Balance 700 2000 2750 Weight 103.8 kg 108.6 kg General appearance: PRESENT: no acute distress, morbidly obese Head exam: PRESENT: atraumatic, normocephalic Eye exam: PRESENT: conjunctiva pink Mouth exam: PRESENT: moist Respiratory exam: PRESENT: clear to auscultation isiah. ABSENT: rales, rhonchi, wheezes Cardiovascular exam: PRESENT: RRR. ABSENT: diastolic murmur, rubs, systolic murmur GI/Abdominal exam: PRESENT: normal bowel sounds, soft. ABSENT: distended, guarding, mass, organolmegaly, rebound, tenderness Extremities exam: PRESENT: pedal edema, tenderness - Severe left leg tenderness postoperatively as expected Neurological exam: PRESENT: alert, awake, oriented to person, oriented to place, oriented to time, oriented to situation Psychiatric exam: PRESENT: appropriate affect, normal mood Skin exam: PRESENT: dry, intact, warm Results Laboratory Results: 05/05/20 06:53 05/05/20 06:53 Impressions: Chest X-Ray 05/04/20 00:00 IMPRESSION: NO ACUTE RADIOGRAPHIC FINDING IN THE CHEST. Femur X-Ray 05/06/20 00:00 IMPRESSION: IMAGE(S) OBTAINED DURING PROCEDURE. Fluoroscopy 05/06/20 00:00 IMPRESSION: IMAGE(S) OBTAINED DURING PROCEDURE. Assessment and Plan - Diagnosis (1) Closed comminuted intra-articular fracture of distal end of left femur Qualifiers: Encounter type: initial encounter Qualified Code(s): S72.492A - Other fracture of lower end of left femur, initial encounter for closed fracture Is this a current diagnosis for this admission?: Yes Plan: Orthopedic surgery consulted: Planning surgery 05/06 Pain management available Likely will need DVT prophylaxis for a few weeks after surgery 04/28/2020 Seen in postop, surgery went quite well per patient Pain management (2) Closed fracture of left distal femur Qualifiers: Encounter type: initial encounter Fracture morphology: other fracture Qualified Code(s): S72.492A - Other fracture of lower end of left femur, initial encounter for closed fracture Is this a current diagnosis for this admission?: Yes (3) Diabetes mellitus type 2 in obese Is this a current diagnosis for this admission?: Yes Plan: Hold oral medications, he sliding scale insulin and Accu-Cheks Hemoglobin A1c 7.7 05/06/2020 Blood sugars acceptable, continue current treatment regimen (4) History of ulcerative colitis Is this a current diagnosis for this admission?: Yes (5) Hypertension Qualifiers: Hypertension type: essential hypertension Qualified Code(s): I10 - Essential (primary) hypertension Is this a current diagnosis for this admission?: Yes (6) Obesity (BMI 30-39.9) Is this a current diagnosis for this admission?: Yes - Plan Summary Summary: Patient will be admitted to the medical service where she will receive routine supportive and symptomatic cares. She will receive Dilaudid 0.52 mg IV every 3 hours as needed for pain. She will receive Ativan 1 mg IV every 4 hours as needed for anxiety or restlessness. Dr. Gonzales will be consulted for orthopedic care as per his request. Patient will be n.p.o. after midnight. She will receive IV fluids utilizing lactated Ringer solution at 167 mL/h. Before meals and at bedtime Accu-Cheks will be performed with sliding scale insulin for hyperglycemia and a hypoglycemic protocol in place. CBCs, metabolic profiles and other laboratory and/or radiographic evaluations will be obtained as needed. - Time Time Spent with patient: 15-24 minutes Medications reviewed and adjusted accordingly: Yes Anticipated Discharge Disposition: [facility] Facility Anticipated Discharge Timeframe: within 72 hours - Inpatient Certification Based on my medical assessment, after consideration of the patient's comorbidities, presenting symptoms, or acuity I expect that the services needed warrant INPATIENT care.: Yes I certify that my determination is in accordance with my understanding of Medicare's requirements for reasonable and necessary INPATIENT services [42 CFR 412.3e].: Yes Medical Necessity: Significant Comorbidiites Make Outpatient Treatment Too Risky, Need Close Monitoring Due to Risk of Patient Decompensation, Need for Pain Control, Risk of Complication if Not Cared For in Hospital, Risk of Diagnosis Which Will Require Inpatient Eval/Care/Monitoring
[2020-05-06] MEDS: ATORVASTATIN CALCIUM 20 MG TABLET PO SCH (21:43)
[2020-05-06] MEDS: LATANOPROST 0.005% OPH SOLN 2.5 ML OU SCH (21:44)
[2020-05-07] MEDS: HYDROMORPHONE HCL INJ/PF 2 MG/ML AMPULE IV PRN ×4 (03:26→22:59)
[2020-05-07] MEDS: ACETAMINOPHEN 325 MG TABLET PO PRN (03:26)
--- NOTE | 2020-05-07 07:09 | PDOC PROGRESS REPORT ---
Subjective Progress Note for:: 05/07/20 Reason For Visit: COMMINUTED FRACTURE LEFT DISTAL FEMUR 69-year-old white female now postop day 1 status post ORIF of a left distal femur fracture. Patient complaining of pain overnight requiring pain medication. Minimal progress with physical therapy yesterday. Low-grade febri le episode last night. Physical Exam Vital Signs: Temp Pulse Resp BP Pulse Ox 38.0 C 105 H 18 128/57 H 98 05/07/20 04:26 05/07/20 01:24 05/07/20 01:24 05/07/20 01:24 05/07/20 01:24 Intake & Output 05/06/20 05/07/20 05/08/20 06:59 06:59 06:59 Intake Total 4000 4250 Output Total 1999 1900 Balance 1999 2350 Weight 108.6 kg 109.3 kg Physical Exam: Overweight middle-aged white female lying in hospital bed. attending to her. Patient is alert, oriented, and appropriate. General appearance: PRESENT: no acute distress, mild distress Head exam: PRESENT: normocephalic Respiratory exam: PRESENT: unlabored Musculoskeletal exam: PRESENT: other - Left lower extremity dressing clean dry and intact. Distal neurovascular examination is intact. Results Laboratory Results: 05/05/20 06:53 05/05/20 06:53 Impressions: Chest X-Ray 05/04/20 00:00 IMPRESSION: NO ACUTE RADIOGRAPHIC FINDING IN THE CHEST. Femur X-Ray 05/06/20 00:00 IMPRESSION: IMAGE(S) OBTAINED DURING PROCEDURE. Fluoroscopy 05/06/20 00:00 IMPRESSION: IMAGE(S) OBTAINED DURING PROCEDURE. Status: Imported from PACS Assessment & Plan - Diagnosis (1) Closed comminuted intra-articular fracture of distal end of left femur Qualifiers: Encounter type: initial encounter Qualified Code(s): S72.492A - Other fracture of lower end of left femur, initial encounter for closed fracture Is this a current diagnosis for this admission?: Yes Plan: Mobilize with physical therapy and a touchdown weightbearing restriction of the left lower extremity. Continue Alvarenga as this is probably the source of the low- grade febrile episodes. - Time Time Spent with patient: 15-24 minutes Anticipated discharge: Home Anticipated DC Timeframe: within 24 hours
[2020-05-07] MEDS: INSULIN REG, HUMAN 100 UNIT/ML 3 ML VIAL (PYX) SUBCUT SCH (08:24)
[2020-05-07] MEDS: FAMOTIDINE INJ/PF 20 MG/2 ML SDV IV SCH ×2 (10:27→22:52)
[2020-05-07] MEDS: CHOLECALCIFEROL (D3) 1,000 UNIT (25 MCG) TABLET PO SCH (10:28)
[2020-05-07] MEDS: ASPIRIN 81 MG TABLET, ENT COATED PO SCH (10:28)
[2020-05-07] MEDS: FLUOXETINE HCL 20 MG CAPSULE PO SCH (10:28)
[2020-05-07 10:33] LABS: WHITE BLOOD COUNT 9.8 10^3/uL (4.0-10.5)
[2020-05-07 10:34] LABS: EOSINOPHILS % (AUTO) 1.3 % (0-6); HEMATOCRIT 27.5 % (36.0-47.0); HEMOGLOBIN 9.5 g/dL (12.0-15.5); LYMPHOCYTES % (AUTO) 10.9 % (13-45); MEAN CORPUSCULAR HEMOGLOBIN 29.7 pg (27.0-33.4); MEAN CORPUSCULAR HGB CONC 34.4 g/dL (32.0-36.0); MEAN CORPUSCULAR VOLUME 86 fl (80-97); MONOCYTES % (AUTO) 14.8 % (3-13); PLATELET COUNT 168 10^3/uL (150-450); RED BLOOD COUNT 3.19 10^6/uL (3.72-5.28); SEGMENTED NEUTROPHILS % (AUTO) 72.7 % (42-78)
[2020-05-07 10:35] LABS: ABSOLUTE EOSINOPHILS # (AUTO) 0.1 10^3/uL (0.0-0.6); ABSOLUTE LYMPHOCYTES (AUTO) 1.1 10^3/uL (0.5-4.7); ABSOLUTE MONOCYTES (AUTO) 1.5 10^3/uL (0.1-1.4); ABSOLUTE NEUT (AUTO) 7.2 10^3/uL (1.7-8.2); BASOPHILS % (AUTO) 0.3 % (0-2); TOTAL CELLS COUNTED % (AUTO) 100 %
[2020-05-07 11:25] LABS: BLOOD UREA NITROGEN 7 mg/dL (7-20); CALCIUM 8.2 mg/dL (8.4-10.2); GLUCOSE 204 mg/dL (75-110)
[2020-05-07 11:26] LABS: ANION GAP 5 (5-19); CARBON DIOXIDE 32 mmol/L (22-30); CHLORIDE 96 mmol/L (98-107); POTASSIUM 3.7 mmol/L (3.6-5.0)
[2020-05-07] MEDS: INSULIN LISPRO 100 UNIT/ML 3 ML VIAL SUBCUT SCH ×3 (12:09→22:51)
--- NOTE | 2020-05-07 14:31 | PDOC PROGRESS REPORT ---
Subjective Progress Note for:: 05/07/20 Subjective:: Patient went for left femur fracture, orthopedic surgery consulted. Admitted to medicine service for diabetes and hypertension management. Patient has well-controlled left leg pain, using narcotics sparingly. A1c is 7.7 and her COVID was negative. EKG showed NSR. Home medications will be restarted. Patient has no other complaints. Surgery planned possibly for tomorrow. 05/06/2020 Patient seen postop seems to be doing quite well other than having expected s evere pain from her surgery. Nursing at bedside and planning to treat her pain appropriately. Patient states her surgery went well and she has no other new complaints. Labs and vitals reviewed. 05/07/2020 Patient still having a moderate amount of pain which seems to be mostly controlled with current narcotics regimen. She is having fevers overnight consistently. She does not endorse any dysuria but I think removing the Alvarenga should be done regardless given the risk for future infection. Possible this is just an overwhelming inflammatory response to the actual surgery. I discussed the various possible reason she might have a fever and what we need to look out for going forward. I have ordered some labs which will need to follow-up on the results for. Patient has no new complaints other than fevers and pain at her surgical site which is expected. Reason For Visit: COMMINUTED FRACTURE LEFT DISTAL FEMUR Physical Exam Vital Signs: Temp Pulse Resp BP Pulse Ox 99.5 F 103 H 16 118/48 L 94 05/07/20 12:23 05/07/20 11:15 05/07/20 11:15 05/07/20 11:15 05/07/20 11:15 Intake & Output 05/06/20 05/07/20 05/08/20 06:59 06:59 06:59 Intake Total 4000 4250 616 Output Total 1999 1900 300 Balance 1999 2350 316 Weight 108.6 kg 109.3 kg General appearance: PRESENT: no acute distress, well-developed, well-nourished Head exam: PRESENT: atraumatic, normocephalic Eye exam: PRESENT: conjunctiva pink Mouth exam: PRESENT: moist Respiratory exam: PRESENT: clear to auscultation isiah. ABSENT: rales, rhonchi, wheezes Cardiovascular exam: PRESENT: RRR. ABSENT: diastolic murmur, rubs, systolic murmur GI/Abdominal exam: PRESENT: normal bowel sounds, soft. ABSENT: distended, guarding, mass, organolmegaly, rebound, tenderness Extremities exam: PRESENT: pedal edema Musculoskeletal exam: PRESENT: tenderness - Pain in left leg along surgical site, pitting edema Neurological exam: PRESENT: alert, awake, oriented to person, oriented to place, oriented to time, oriented to situation Skin exam: PRESENT: dry, intact, warm Results Laboratory Results: 05/07/20 09:58 05/07/20 09:58 05/07/20 05/07/20 09:58 09:58 WBC 9.8 RBC 3.19 L Hgb 9.5 L Hct 27.5 L MCV 86 MCH 29.7 MCHC 34.4 RDW 13.0 Plt Count 168 Seg Neutrophils % 72.7 Sodium 132.6 L Potassium 3.7 Chloride 96 L Carbon Dioxide 32 H Anion Gap 5 BUN 7 Creatinine 0.62 Est GFR ( Amer) > 60 Glucose 204 H Calcium 8.2 L Impressions: Chest X-Ray 05/04/20 00:00 IMPRESSION: NO ACUTE RADIOGRAPHIC FINDING IN THE CHEST. Femur X-Ray 05/06/20 00:00 IMPRESSION: IMAGE(S) OBTAINED DURING PROCEDURE. Fluoroscopy 05/06/20 00:00 IMPRESSION: IMAGE(S) OBTAINED DURING PROCEDURE. Assessment and Plan - Diagnosis (1) Closed comminuted intra-articular fracture of distal end of left femur Qualifiers: Encounter type: initial encounter Qualified Code(s): S72.492A - Other fracture of lower end of left femur, initial encounter for closed fracture Is this a current diagnosis for this admission?: Yes Plan: Orthopedic surgery consulted: Planning surgery 05/06 Pain management available Likely will need DVT prophylaxis for a few weeks after surgery 05/06/2020 Seen in postop, surgery went quite well per patient Pain management 05/07/2020 Having some postoperative fevers of unclear origin Alvarenga catheter needs to be removed Labs ordered; consider blood cultures and antibiotics if fever does not resolve in the next 24 to 48 hours (2) Closed fracture of left distal femur Qualifiers: Encounter type: initial encounter Fracture morphology: other fracture Qualified Code(s): S72.492A - Other fracture of lower end of left femur, initial encounter for closed fracture Is this a current diagnosis for this admission?: Yes (3) Diabetes mellitus type 2 in obese Is this a current diagnosis for this admission?: Yes (4) History of ulcerative colitis Is this a current diagnosis for this admission?: Yes (5) Hypertension Qualifiers: Hypertension type: essential hypertension Qualified Code(s): I10 - Essential (primary) hypertension Is this a current diagnosis for this admission?: Yes (6) Obesity (BMI 30-39.9) Is this a current diagnosis for this admission?: Yes - Plan Summary Summary: Patient will be admitted to the medical service where she will receive routine supportive and symptomatic cares. She will receive Dilaudid 0.52 mg IV every 3 hours as needed for pain. She will receive Ativan 1 mg IV every 4 hours as needed for anxiety or restlessness. Dr. Gonzales will be consulted for orthopedic care as per his request. Patient will be n.p.o. after midnight. She will receive IV fluids utilizing lactated Ringer solution at 167 mL/h. Before meals and at bedtime Accu-Cheks will be performed with sliding scale insulin for hyperglycemia and a hypoglycemic protocol in place. CBCs, metabolic profiles and other laboratory and/or radiographic evaluations will be obtained as needed. - Time Time Spent with patient: 25-34 minutes Medications reviewed and adjusted accordingly: Yes Anticipated Discharge Disposition: Longterm Facility Anticipated Discharge Timeframe: within 72 hours - Inpatient Certification Based on my medical assessment, after consideration of the patient's comor bidities, presenting symptoms, or acuity I expect that the services needed warrant INPATIENT care.: Yes I certify that my determination is in accordance with my understanding of Medicare's requirements for reasonable and necessary INPATIENT services [42 CFR 412.3e].: Yes Medical Necessity: Significant Comorbidiites Make Outpatient Treatment Too Risky, Need Close Monitoring Due to Risk of Patient Decompensation, Need for Pain Control, Risk of Complication if Not Cared For in Hospital, Risk of Diagnosis Which Will Require Inpatient Eval/Care/Monitoring
[2020-05-07] MEDS: ATORVASTATIN CALCIUM 20 MG TABLET PO SCH (22:52)
[2020-05-07] MEDS: LATANOPROST 0.005% OPH SOLN 2.5 ML OU SCH (22:52)
--- NOTE | 2020-05-08 08:54 | PDOC DISCHARGE SUMMARY ---
General - Admit/Disc Date/PCP Admission Date/Primary Care Provider: 05/04/20 20:55 Discharge Date: 05/08/20 - Discharge Diagnosis Final Diagnosis: Status post ORIF left distal femur - Assessment Summary: Patient will be admitted to the medical service where she will receive routine supportive and symptomatic cares. She will receive Dilaudid 0.52 mg IV every 3 hours as needed for pain. She will receive Ativan 1 mg IV every 4 hours as needed for anxiety or restlessness. Dr. Gonzales will be consulted for orthopedic care as per his request. Patient will be n.p.o. after midnight. She will receive IV fluids utilizing lactated Ringer solution at 167 mL/h. Before meals and at bedtime Accu-Cheks will be performed with sliding scale insulin for hyperglycemia and a hypoglycemic protocol in place. CBCs, metabolic profiles and other laboratory and/or radiographic evaluations will be obtained as needed. - Additional Information Resuscitation Status: Full Code Discharge Diet: As Tolerated Discharge Activity: No Lifting/Push/Pulling, Other - NonWeightbearing left lower extremity Referrals: ROBIN LUCERO MD [ACTIVE STAFF] - 05/21/20 10:30 am Home Medications: Aspirin [Ecotrin 81 mg EC Tablet] 81 mg PO DAILY 05/05/20 Cholecalciferol (Vitamin D3) [Vitamin D3 1000 Unit Tablet] 2,000 unit PO DAILY 05/05/20 Famotidine [Pepcid] 20 mg PO BID 05/05/20 Fluoxetine HCl [Prozac] 40 mg PO DAILY 05/05/20 Latanoprost [Xalatan 0.005% Oph Soln 2.5 ml] 1 drop OU QHS 05/05/20 Losartan/Hydrochlorothiazide [Losartan-Hctz 50-12.5 mg Tab] 1 tab PO DAILY 05/05/20 Meloxicam [Mobic] 15 mg PO ASDIR PRN 05/05/20 Metformin HCl [Glucophage 500 mg Tablet] 1,000 mg PO DAILY 05/05/20 Rosuvastatin Calcium [Crestor] 10 mg PO DAILY 05/05/20 Timolol Maleate [Timoptic 0.5% Oph Soln 5 ml] 1 drop OU Q12 05/05/20 History of Present Illiness History of Present Illness: AB SESAY is a 69 year old female Physical Exam Vital Signs: Temp Pulse Resp BP Pulse Ox 98.5 F 108 H 18 142/81 H 98 05/07/20 22:53 05/07/20 22:53 05/07/20 22:53 05/07/20 22:53 05/07/20 22:53 Intake & Output 05/07/20 05/08/20 05/09/20 06:59 06:59 06:59 Intake Total 4250 934 Output Total 1900 1550 Balance 2350 -616 Weight 109.3 kg 109.3 kg Results Laboratory Results: WBC 9.8 10^3/uL (4.0-10.5) 05/07/20 09:58 RBC 3.19 10^6/uL (3.72-5.28) L 05/07/20 09:58 Hgb 9.5 g/dL (12.0-15.5) L 05/07/20 09:58 Hct 27.5 % (36.0-47.0) L 05/07/20 09:58 MCV 86 fl (80-97) 05/07/20 09:58 MCH 29.7 pg (27.0-33.4) 05/07/20 09:58 MCHC 34.4 g/dL (32.0-36.0) 05/07/20 09:58 RDW 13.0 % (11.5-14.0) 05/07/20 09:58 Plt Count 168 10^3/uL (150-450) 05/07/20 09:58 Lymph % (Auto) 10.9 % (13-45) L 05/07/20 09:58 Sunflower % (Auto) 14.8 % (3-13) H 05/07/20 09:58 Eos % (Auto) 1.3 % (0-6) 05/07/20 09:58 Baso % (Auto) 0.3 % (0-2) 05/07/20 09:58 Absolute Neuts (auto) 7.2 10^3/uL (1.7-8.2) 05/07/20 09:58 Absolute Lymphs (auto) 1.1 10^3/uL (0.5-4.7) 05/07/20 09:58 Absolute Monos (auto) 1.5 10^3/uL (0.1-1.4) H 05/07/20 09:58 Absolute Eos (auto) 0.1 10^3/uL (0.0-0.6) 05/07/20 09:58 Absolute Basos (auto) 0.0 10^3/uL (0.0-0.2) 05/07/20 09:58 Seg Neutrophils % 72.7 % (42-78) 05/07/20 09:58 Sodium 132.6 mmol/L (137-145) L 05/07/20 09:58 Potassium 3.7 mmol/L (3.6-5.0) 05/07/20 09:58 Chloride 96 mmol/L (98-107) L 05/07/20 09:58 Carbon Dioxide 32 mmol/L (22-30) H 05/07/20 09:58 Anion Gap 5 (5-19) 05/07/20 09:58 BUN 7 mg/dL (7-20) 05/07/20 09:58 Creatinine 0.62 mg/dL (0.52-1.25) 05/07/20 09:58 Est GFR ( Amer) > 60 (>60) 05/07/20 09:58 Est GFR (MDRD) Non-Af > 60 (>60) 05/07/20 09:58 Glucose 204 mg/dL (75-110) H 05/07/20 09:58 POC Glucose 165 mg/dL (70-110) H 05/08/20 06:51 Hemoglobin A1c % 7.7 % (4.7-6.0) H 05/05/20 06:53 Calcium 8.2 mg/dL (8.4-10.2) L 05/07/20 09:58 Magnesium 1.8 mg/dL (1.6-2.3) 05/05/20 06:53 Total Bilirubin 0.6 mg/dL (0.2-1.3) 05/04/20 19:47 Direct Bilirubin 0.0 mg/dL (0.0-0.4) 05/04/20 19:47 Neonat Total Bilirubin Not Reportable 05/04/20 19:47 Neonat Direct Bilirubin Not Reportable 05/04/20 19:47 Neonat Indirect Bili Not Reportable 05/04/20 19:47 AST 29 U/L (14-36) 05/04/20 19:47 ALT 16 U/L (<35) 05/04/20 19:47 Alkaline Phosphatase 52 U/L (38-126) 05/04/20 19:47 Total Protein 6.4 g/dL (6.3-8.2) 05/04/20 19:47 Albumin 3.7 g/dL (3.5-5.0) 05/04/20 19:47 SARS-CoV-2 (PCR) NEGATIVE (NEGATIVE) 05/05/20 01:05 Impressions: Chest X-Ray 05/04/20 00:00 IMPRESSION: NO ACUTE RADIOGRAPHIC FINDING IN THE CHEST. Femur X-Ray 05/04/20 16:55 IMPRESSION: Comminuted fracture of the distal femur as described. Femur X-Ray 05/06/20 00:00 IMPRESSION: IMAGE(S) OBTAINED DURING PROCEDURE. Fluoroscopy 05/06/20 00:00
[2020-05-08] MEDS: CHOLECALCIFEROL (D3) 1,000 UNIT (25 MCG) TABLET PO SCH (08:59)
[2020-05-08] MEDS: FLUOXETINE HCL 20 MG CAPSULE PO SCH (09:00)
[2020-05-08] MEDS: ASPIRIN 81 MG TABLET, ENT COATED PO SCH (09:00)
[2020-05-08] MEDS: INSULIN LISPRO 100 UNIT/ML 3 ML VIAL SUBCUT SCH ×2 (09:01→13:18)
[2020-05-08] MEDS: FAMOTIDINE INJ/PF 20 MG/2 ML SDV IV SCH (09:01)
[2020-05-08] MEDS: HYDROMORPHONE HCL INJ/PF 2 MG/ML AMPULE IV PRN (11:06)
[2020-05-08 12:02] VITALS: BP 119/58
--- NOTE | 2020-05-08 15:33 | PDOC PROGRESS REPORT ---
Subjective Progress Note for:: 05/08/20 Subjective:: Patient went for left femur fracture, orthopedic surgery consulted. Admitted to medicine service for diabetes and hypertension management. Patient has well-controlled left leg pain, using narcotics sparingly. A1c is 7.7 and her COVID was negative. EKG showed NSR. Home medications will be restarted. Patient has no other complaints. Surgery planned possibly for tomorrow. 05/06/2020 Patient seen postop seems to be doing quite well other than having expected s evere pain from her surgery. Nursing at bedside and planning to treat her pain appropriately. Patient states her surgery went well and she has no other new complaints. Labs and vitals reviewed. 05/07/2020 Patient still having a moderate amount of pain which seems to be mostly controlled with current narcotics regimen. She is having fevers overnight consistently. She does not endorse any dysuria but I think removing the Alvarenga should be done regardless given the risk for future infection. Possible this is just an overwhelming inflammatory response to the actual surgery. I discussed the various possible reason she might have a fever and what we need to look out for going forward. I have ordered some labs which will need to follow-up on the results for. Patient has no new complaints other than fevers and pain at her surgical site which is expected. 05/08/2020 Fevers have completely resolved and patient states her pain is well controlled. She feels approximately back to baseline other than her postsurgical pain which is to be expected. Patient and her have plans for the patient to go to a rehab facility near their home. Patient is stable for discharge from medical standpoint. Orthopedic surgery assisting with discharging patient which is appreciated. Patient has no new complaints today. Reason For Visit: COMMINUTED FRACTURE LEFT DISTAL FEMUR Physical Exam Vital Signs: Temp Pulse Resp BP Pulse Ox 98.5 F 102 H 18 119/58 L 96 05/08/20 11:39 05/08/20 11:39 05/08/20 11:39 05/08/20 11:39 05/08/20 11:39 Intake & Output 05/07/20 05/08/20 05/09/20 06:59 06:59 06:59 Intake Total 4250 934 960 Output Total 1900 1550 Balance 2350 -616 960 Weight 109.3 kg 109.3 kg General appearance: PRESENT: no acute distress, well-developed, well-nourished Head exam: PRESENT: atraumatic, normocephalic Eye exam: PRESENT: conjunctiva pink Mouth exam: PRESENT: moist Respiratory exam: PRESENT: clear to auscultation isiah. ABSENT: rales, rhonchi, wheezes Cardiovascular exam: PRESENT: RRR. ABSENT: diastolic murmur, rubs, systolic murmur GI/Abdominal exam: PRESENT: normal bowel sounds, soft. ABSENT: distended, guarding, mass, organolmegaly, rebound, tenderness Extremities exam: PRESENT: tenderness - Moderate pain along surgical wound which is clean and healing Neurological exam: PRESENT: alert, awake, oriented to person, oriented to place, oriented to time, oriented to situation Psychiatric exam: PRESENT: appropriate affect, normal mood Skin exam: PRESENT: dry, warm Results Laboratory Results: 05/07/20 09:58 05/07/20 09:58 Impressions: Chest X-Ray 05/04/20 00:00 IMPRESSION: NO ACUTE RADIOGRAPHIC FINDING IN THE CHEST. Femur X-Ray 05/06/20 00:00 IMPRESSION: IMAGE(S) OBTAINED DURING PROCEDURE. Fluoroscopy 05/06/20 00:00 IMPRESSION: IMAGE(S) OBTAINED DURING PROCEDURE. Assessment and Plan - Diagnosis (1) Closed comminuted intra-articular fracture of distal end of left femur Qualifiers: Encounter type: initial encounter Qualified Code(s): S72.492A - Other fracture of lower end of left femur, initial encounter for closed fracture Is this a current diagnosis for this admission?: Yes Plan: Orthopedic surgery consulted: Planning surgery 05/06 Pain management available Likely will need DVT prophylaxis for a few weeks after surgery 05/06/2020 Seen in postop, surgery went quite well per patient Pain management 05/07/2020 Having some postoperative fevers of unclear origin Alvarenga catheter needs to be removed Labs ordered; consider blood cultures and antibiotics if fever does not resolve in the next 24 to 48 hours Cleared for discharge from medicine standpoint, fevers completely resolved, Alvarenga catheter removed and patient voiding without difficulty, pain well controlled (2) Closed fracture of left distal femur Qualifiers: Encounter type: initial encounter Fracture morphology: other fracture Qualified Code(s): S72.492A - Other fracture of lower end of left femur, initial encounter for closed fracture Is this a current diagnosis for this admission?: Yes Plan: As above (3) Diabetes mellitus type 2 in obese Is this a current diagnosis for this admission?: Yes Plan: Hold oral medications, he sliding scale insulin and Accu-Cheks Hemoglobin A1c 7.7 05/06/2020 Blood sugars acceptable, continue current treatment regimen Blood sugars controlled (4) History of ulcerative colitis Is this a current diagnosis for this admission?: Yes (5) Hypertension Qualifiers: Hypertension type: essential hypertension Qualified Code(s): I10 - Essential (primary) hypertension Is this a current diagnosis for this admission?: Yes (6) Obesity (BMI 30-39.9) Is this a current diagnosis for this admission?: Yes - Plan Summary Summary: Patient will be admitted to the medical service where she will receive routine supportive and symptomatic cares. She will receive Dilaudid 0.52 mg IV every 3 hours as needed for pain. She will receive Ativan 1 mg IV every 4 hours as needed for anxiety or restlessness. Dr. Gonzales will be consulted for orthopedic care as per his request. Patient will be n.p.o. after midnight. She will receive IV fluids utilizing lactated Ringer solution at 167 mL/h. Before meals and at bedtime Accu-Cheks will be performed with sliding scale insulin for hyperglycemia and a hypoglycemic protocol in place. CBCs, metabolic profiles and other laboratory and/or radiographic evaluations will be obtained as needed. - Time Time Spent with patient: 15-24 minutes Medications reviewed and adjusted accordingly: Yes Anticipated Discharge Disposition: Custodial Facility Anticipated Discharge Timeframe: within 24 hours
== END 2020-05-08 14:45 | DRG 482 ==
LOC: ER 16:36 → EH 20:55 → 4W 23:40 → UNDODISIN 05-05 11:20
PROVIDERS: ADMIT Emergency Medicine; ATTEND Internal Medicine
PROC: 0QSC06Z Reposition Left Lower Femur with Intramedullary Internal Fixation Device, Open Approach (ICD-10-PCS; principal; 2020-05-06 07:30)
DX: S72.412A Displaced unspecified condyle fracture of lower end of left femur, initial encounter for closed fracture (principal); I10 Essential (primary) hypertension; E11.9 Type 2 diabetes mellitus without complications; E66.9 Obesity, unspecified; W10.1XXA Fall (on)(from) sidewalk curb, initial encounter; Z96.643 Presence of artificial hip joint, bilateral; Z96.662 Presence of left artificial ankle joint; Z87.19 Personal history of other diseases of the digestive system; Z90.49 Acquired absence of other specified parts of digestive tract; Z03.818 Encounter for observation for suspected exposure to other biological agents ruled out; Z83.3 Family history of diabetes mellitus; Z82.49 Family history of ischemic heart disease and other diseases of the circulatory system; Z82.3 Family history of stroke; Z88.5 Allergy status to narcotic agent; Z88.8 Allergy status to other drugs, medicaments and biological substances
CPT/HCPCS: 01360; 36415; 51702; 71045; 80048; 80053; 82962; 83036; 83735; 85025; 85027; 87635; 93005; 93010; 96374; 99284; C1713; C1769; C9290; C9803; J0690; J1170; J1644; J1815; J2175; J2250; J2405; J2704; J3010; J3490; J7120; L1830; S0028